=== PATIENT | female | born 1975 | race Caucasian/White ===

== ENCOUNTER 2017-07-07 18:39 | Emergency (ER) | payer MEDICAID ==
[~2017-07-07] VITALS: Ht 172.7 cm; Wt 130.4 kg
[~2017-07-07 18:39] MED LIST: ALBU8.5H8 IH; FERR1TAB9 PO; FLUT16SP2 BOTHNARES; PSEU-250 PO
[2017-07-07 19:46] VITALS: BP_DIAS 97
[2017-07-07] MEDS ORDERED: morphine 4 MG/ML inj SYRINge IV ONE (19:50)
[2017-07-07] MEDS ORDERED: IBUP-1984 PO (21:36)
== END 2017-07-07 21:51 | disposition home or self-care (01) ==
LOC: ER 18:39
DX: S80.02XA Contusion of left knee, initial encounter (principal); M25.562 Pain in left knee; V29.3XXA Motorcycle rider (driver) (passenger) injured in unspecified nontraffic accident, initial encounter; Y93.89 Activity, other specified; Y92.89 Other specified places as the place of occurrence of the external cause
CPT/HCPCS: 29505; 73564; 96374; 99284; A6449; J2270

== ENCOUNTER 2017-07-11 08:45 | Emergency (ER) | payer MEDICAID ==
[~2017-07-11] VITALS: Ht 172.7 cm; Wt 120.0 kg
[~2017-07-11 08:45] MED LIST changes: +IBUP-1984 PO
[2017-07-11 08:48] VITALS: BP 149/99
== END 2017-07-11 10:11 | disposition home or self-care (01) ==
LOC: ER 08:46
DX: S80.02XD Contusion of left knee, subsequent encounter (principal); G89.29 Other chronic pain; Z88.5 Allergy status to narcotic agent; Z79.899 Other long term (current) drug therapy; V29.3XXD Motorcycle rider (driver) (passenger) injured in unspecified nontraffic accident, subsequent encounter
CPT/HCPCS: 99282; A6449

== ENCOUNTER 2017-07-17 09:32 | Outpatient (CLI) | payer MEDICAID ==
[2017-07-17 09:31] VITALS: BP 130/76
== END 2017-07-17 10:35 | disposition home or self-care (01) ==
LOC: ORTHO 09:32
PROVIDERS: ATTEND Nurse Practitioner Family
DX: S89.92XA Unspecified injury of left lower leg, initial encounter (principal); F41.9 Anxiety disorder, unspecified; G89.29 Other chronic pain; Z88.5 Allergy status to narcotic agent; X58.XXXA Exposure to other specified factors, initial encounter; Y93.89 Activity, other specified; Y92.89 Other specified places as the place of occurrence of the external cause; Y99.8 Other external cause status
CPT/HCPCS: 99213

== ENCOUNTER 2017-07-22 14:17 | Emergency (ER) | payer MEDICAID ==
[~2017-07-22] VITALS: Ht 172.7 cm; Wt 132.8 kg
[2017-07-22 15:12] VITALS: BP 152/84
== END 2017-07-22 16:29 | disposition home or self-care (01) ==
LOC: ER 14:18
DX: S80.02XA Contusion of left knee, initial encounter (principal); M25.462 Effusion, left knee; Z79.899 Other long term (current) drug therapy; G89.29 Other chronic pain; V29.9XXA Motorcycle rider (driver) (passenger) injured in unspecified traffic accident, initial encounter; Y93.89 Activity, other specified; Y92.89 Other specified places as the place of occurrence of the external cause; Y99.8 Other external cause status
CPT/HCPCS: 73560; 99284

== ENCOUNTER 2017-07-31 08:39 | Outpatient (CLI) | payer MEDICAID ==
[2017-07-31] MEDS ORDERED: BUPIVAcaine/PF 2.5mg/ml (0.25%) 10ml vial ONE (09:14)
[2017-07-31] MEDS ORDERED: LIDOcaine 2% (20mg/ml) 5ml vial ONE (09:14)
[2017-07-31] MEDS ORDERED: gadopentetate dimeglumine 5 mmol/10ml vial IV ONE (09:15)
[2017-07-31] MEDS ORDERED: sodium bicarbonate 4.2% (0.5mEq/ml) inj. ONE (09:15)
[2017-07-31] MEDS ORDERED: iohexol 300 MG/1 ML 10ml vial ONE (09:15)
== END 2017-07-31 23:59 | disposition home or self-care (01) ==
LOC: RAD 08:39 → EDSTATUS 09:00 → RAD 23:59
PROVIDERS: ATTEND Nurse Practitioner Family
DX: M17.12 Unilateral primary osteoarthritis, left knee (principal); Z87.891 Personal history of nicotine dependence
CPT/HCPCS: 73722; A9579; Q9967; J2001; J3490

== ENCOUNTER 2017-08-08 09:26 | Outpatient (CLI) | payer MEDICAID ==
[~2017-08-08 09:26] MED LIST changes: -IBUP-1984 PO
== END 2017-08-08 10:00 | disposition home or self-care (01) ==
LOC: ORTHO 09:26
PROVIDERS: ATTEND Nurse Practitioner Family
DX: S89.92XD Unspecified injury of left lower leg, subsequent encounter (principal); S80.02XD Contusion of left knee, subsequent encounter; F41.9 Anxiety disorder, unspecified; G89.29 Other chronic pain; Z88.5 Allergy status to narcotic agent; X58.XXXD Exposure to other specified factors, subsequent encounter
CPT/HCPCS: 99213; A6449

== ENCOUNTER 2017-08-30 09:56 | Outpatient (CLI) | payer MEDICAID ==
[2017-08-30 10:38] VITALS: BP 143/81
== END 2017-08-30 11:22 | disposition home or self-care (01) ==
LOC: ORTHO 09:56
PROVIDERS: ATTEND Nurse Practitioner Family
DX: S80.02XD Contusion of left knee, subsequent encounter (principal); S89.92XD Unspecified injury of left lower leg, subsequent encounter; F41.9 Anxiety disorder, unspecified; Z88.8 Allergy status to other drugs, medicaments and biological substances; X58.XXXD Exposure to other specified factors, subsequent encounter
CPT/HCPCS: 99213

== ENCOUNTER 2017-10-09 09:14 | Outpatient (CLI) | payer MEDICAID | END 2017-10-09 10:19 | disposition home or self-care (01) | LOC: ORTHO 09:14 | PROVIDERS: ATTEND Nurse Practitioner Family | DX: S80.02XD Contusion of left knee, subsequent encounter (principal); S89.92XD Unspecified injury of left lower leg, subsequent encounter; G89.29 Other chronic pain; F41.9 Anxiety disorder, unspecified; E66.01 Morbid (severe) obesity due to excess calories; Z88.5 Allergy status to narcotic agent; Z98.84 Bariatric surgery status; X58.XXXD Exposure to other specified factors, subsequent encounter | CPT/HCPCS: 99213; A6449 ==

== ENCOUNTER 2017-11-07 11:48 | Outpatient (CLI) | payer MEDICAID ==
[2017-11-07 11:58] VITALS: BP 129/66
== END 2017-11-07 12:15 | disposition home or self-care (01) ==
LOC: ORTHO 11:48
PROVIDERS: ATTEND Nurse Practitioner Family
DX: S80.02XD Contusion of left knee, subsequent encounter (principal); S89.92XD Unspecified injury of left lower leg, subsequent encounter; G89.29 Other chronic pain; F41.9 Anxiety disorder, unspecified; Z88.5 Allergy status to narcotic agent; Z98.84 Bariatric surgery status; X58.XXXD Exposure to other specified factors, subsequent encounter
CPT/HCPCS: 99213

== ENCOUNTER 2018-03-12 16:04 | Emergency (ER) | payer MEDICAID ==
[~2018-03-12] VITALS: Ht 175.3 cm; Wt 130.0 kg
[2018-03-12 16:05] VITALS: BP 142/87
[2018-03-12] MEDS ORDERED: AZIT250T PO (16:47)
[2018-03-12] MEDS ORDERED: BENZ-16 PO (16:47)
== END 2018-03-12 17:23 | disposition home or self-care (01) ==
LOC: ER 16:05
DX: J06.9 Acute upper respiratory infection, unspecified (principal); G89.29 Other chronic pain; Z88.5 Allergy status to narcotic agent; Z79.899 Other long term (current) drug therapy; Z87.891 Personal history of nicotine dependence
CPT/HCPCS: 87081; 87880; 99283

== ENCOUNTER 2018-08-10 20:44 | Emergency (ER) | payer MEDICAID ==
[~2018-08-10] VITALS: Ht 172.7 cm; Wt 127.3 kg
[~2018-08-10 20:44] MED LIST changes: +AZIT250T PO
[2018-08-10] MEDS ORDERED: normal saline 1000ML IV soln IVB ONE (20:55)
[2018-08-10 21:29] VITALS: BP 128/72
== END 2018-08-10 22:27 | disposition home or self-care (01) ==
LOC: ER 20:45
DX: E86.0 Dehydration (principal); R42 Dizziness and giddiness; R55 Syncope and collapse; G89.29 Other chronic pain; F41.9 Anxiety disorder, unspecified; Z98.84 Bariatric surgery status; Z88.5 Allergy status to narcotic agent; Z79.899 Other long term (current) drug therapy
CPT/HCPCS: 82948; 93005; 96360; 99283; J7030

== ENCOUNTER 2018-09-28 17:02 | Emergency (ER) | payer MEDICAID ==
[~2018-09-28] VITALS: Ht 172.7 cm; Wt 133.0 kg
[2018-09-28] MEDS ORDERED: ALBU8HFA PO (18:23)
[2018-09-28 18:36] VITALS: BP 134/77
== END 2018-09-28 18:30 | disposition home or self-care (01) ==
LOC: ER 17:03
DX: J20.9 Acute bronchitis, unspecified (principal); J32.9 Chronic sinusitis, unspecified; G89.29 Other chronic pain; F41.9 Anxiety disorder, unspecified; Z98.0 Intestinal bypass and anastomosis status; Z88.5 Allergy status to narcotic agent; Z79.2 Long term (current) use of antibiotics; Z79.899 Other long term (current) drug therapy
CPT/HCPCS: 99283

== ENCOUNTER 2019-05-10 09:39 | Emergency (ER) | payer MEDICAID ==
[~2019-05-10] VITALS: Ht 172.7 cm; Wt 132.0 kg
[2019-05-10 09:44] VITALS: BP 157/91
--- NOTE | 2019-05-10 10:59 | NUR ---
PT STATES SHE HAS TO PROP HERSELF UP TO SLEEP BECAUSE SHE STARTS COUGHING, ALSO SINUS PAIN. PT IS A PAYROLL AUDITOR.
--- NOTE | 2019-05-10 12:02 | NUR ---
throat swab collected and taken to lab.
[2019-05-10] MEDS ORDERED: ALBU8.5H8 INH (12:37)
== END 2019-05-10 12:50 | disposition home or self-care (01) ==
LOC: ER 09:40
DX: B34.9 Viral infection, unspecified (principal); R05 Cough; R09.89 Other specified symptoms and signs involving the circulatory and respiratory systems; R51 Headache; R07.89 Other chest pain; R06.02 Shortness of breath; J02.9 Acute pharyngitis, unspecified; G89.29 Other chronic pain; F41.9 Anxiety disorder, unspecified; F17.200 Nicotine dependence, unspecified, uncomplicated; Z98.0 Intestinal bypass and anastomosis status; Z72.89 Other problems related to lifestyle; Z88.5 Allergy status to narcotic agent; Z79.899 Other long term (current) drug therapy
CPT/HCPCS: 87081; 87880; 99283

== ENCOUNTER 2020-04-28 19:43 | Emergency (ER) | payer MEDICAID ==
[~2020-04-28] VITALS: Ht 172.7 cm; Wt 113.6 kg
[~2020-04-28 19:43] MED LIST changes: +ALBU8.5H8 INH
[2020-04-28 19:52] VITALS: BP 144/89
== END 2020-04-28 20:54 | disposition home or self-care (01) ==
LOC: ER 19:45
DX: Z20.822 Contact with and (suspected) exposure to COVID-19 (principal); Z98.890 Other specified postprocedural states; Z72.89 Other problems related to lifestyle; Z88.5 Allergy status to narcotic agent; Z79.2 Long term (current) use of antibiotics; Z79.899 Other long term (current) drug therapy
CPT/HCPCS: 36415; 87635; 99283

== ENCOUNTER 2020-11-06 21:42 | Emergency (ER) | payer MEDICAID ==
[~2020-11-06] VITALS: Ht 172.7 cm; Wt 109.1 kg
[~2020-11-06 21:42] MED LIST changes: +ALBU8.5H17 IH; +ALBU8.5H17 INH; -ALBU8.5H8 IH; -ALBU8.5H8 INH; -PSEU-250 PO; +PSEU-303 PO
--- NOTE | 2020-11-06 22:02 | NUR ---
PT DAUGHTER CALLED AND STATED PT WAS AT GET TOGETHER, HAVING FOOD AND DRINKS, SAT DOWN AND STATES SHE FELT LIKE SHE WAS GOING TO THROW UP, GOT PALE AND STATED SHE COULDNT SEE THEN STARTED SEIZING, WENT UNCONCIOUS, FAINT PULSE PALPABLE BY DAUGHTER WHO IS NUMERICAL CONTROL MACHINE OPERATOR, PT DAUGHTER STATES SHE DID A STERNAL PUNCH THEN THE PT WOKE UP. PT STATES WHEN PT WENT LIMP PT FACE WENT "DROOPY" AND PT STATED HER FINGERS AND TOES WENT NUMB.
--- NOTE | 2020-11-06 22:05 | NUR ---
PT DAUGHTER SARAH GREY - [phone]
[2020-11-06 22:08] LABS: BASOPHILS % (AUTO) 0.6 % (0-1); EOSINOPHILS # (AUTO) 0.2 X10'3 (0-0.9); EOSINOPHILS % (AUTO) 2.6 % (0-6); HEMATOCRIT 37.1 % (35.0-45.0); HEMOGLOBIN 12.5 g/dl (12.0-16.0); LYMPHOCYTES # (AUTO) 1.9 X10'3 (1.1-4.8); LYMPHOCYTES % (AUTO) 32.2 % (21-51); MEAN CORPUSCULAR HEMOGLOBIN 30.5 PG (27.0-31.0); MEAN CORPUSCULAR HGB CONC 33.7 g/dL (33.0-36.5); MEAN CORPUSCULAR VOLUME 90.5 FL (78-98); MEAN PLATELET VOLUME 7.2 FL (7.4-10.4); MONOCYTES # (AUTO) 0.7 X10'3 (0-0.9); MONOCYTES % (AUTO) 11.8 % (2-12); NEUTROPHILS # (AUTO) 3.1 X10'3 (1.8-7.7); NEUTROPHILS % (AUTO) 52.8 % (42-75); PLATELET COUNT 362 X10'3 (140-440); WHITE BLOOD COUNT 5.9 X10'3 (4.5-11.0)
[2020-11-06 22:37] LABS: ALANINE AMINOTRANSFERASE 16 U/L (12-78); ALBUMIN 3.2 G/DL (3.4-5.0); ALBUMIN/GLOBULIN RATIO 0.8 (1.1-1.5); ALKALINE PHOSPHATASE 76 IU/L (46-116); ANION GAP 10 (8-16); ASPARTATE AMINO TRANSFERASE 12 U/L (10-37); BILIRUBIN,TOTAL 0.2 MG/DL (0.1-1.0); BLOOD UREA NITROGEN 9 MG/DL (7-18); BUN/CREATININE RATIO 12.5 (6.6-38.0); CALCIUM 8.1 MG/DL (8.5-10.1); CHLORIDE 108 MMOL/L (99-107); CREATININE 0.72 MG/DL (0.40-0.90); GLUCOSE 89 MG/DL (70-104); POTASSIUM 3.2 MMOL/L (3.5-5.1); SODIUM 143 MMOL/L (135-145); TOTAL CARBON DIOXIDE 25.1 MMOL/L (24-32); TOTAL PROTEIN 7.1 G/DL (6.4-8.2); eGFR 87 ML/MIN
[2020-11-06] MEDS ORDERED: AMOX-117 PO (23:54)
[2020-11-07 00:16] VITALS: BP 124/79
== END 2020-11-07 00:17 | disposition home or self-care (01) ==
LOC: ER 21:43
DX: R55 Syncope and collapse (principal); R11.2 Nausea with vomiting, unspecified; G89.29 Other chronic pain; Z72.89 Other problems related to lifestyle; Z98.84 Bariatric surgery status; Z88.8 Allergy status to other drugs, medicaments and biological substances; Z79.2 Long term (current) use of antibiotics; Z79.899 Other long term (current) drug therapy
CPT/HCPCS: 36415; 71045; 80053; 83880; 84484; 85025; 93005; 99285

== ENCOUNTER 2022-10-28 14:31 | Emergency (ER) | payer MEDICAID ==
[~2022-10-28] VITALS: Ht 172.7 cm; Wt 118.2 kg
[2022-10-28] MEDS ORDERED: normal saline 1000ML IV soln IVB STA (16:08)
[2022-10-28] MEDS ORDERED: epiNEPHrine 1 mg/ml inj SQ ONE (16:10)
[2022-10-28] MEDS ORDERED: diphenhydrAMINE 50 mg/ml inj IV ONE ×2 (16:10→17:35)
[2022-10-28] MEDS ORDERED: methylPREDNISolone sod succ 125mg/2ml vial IV ONE (16:10)
[2022-10-28] MEDS ORDERED: famotidine/PF 10 mg/ml inj IV ONE (16:10)
[2022-10-28 18:10] LABS: BASOPHILS % (AUTO) 0.3 % (0-1); EOSINOPHILS % (AUTO) 0.6 % (0-6); HEMATOCRIT 35.2 % (35.0-45.0); HEMOGLOBIN 11.8 g/dl (12.0-16.0); LYMPHOCYTES # (AUTO) 1.3 X10'3 (1.1-4.8); LYMPHOCYTES % (AUTO) 24.3 % (21-51); MEAN CORPUSCULAR HEMOGLOBIN 29.5 PG (27.0-31.0); MEAN CORPUSCULAR HGB CONC 33.5 g/dL (33.0-36.5); MEAN PLATELET VOLUME 7.7 FL (7.4-10.4); MONOCYTES # (AUTO) 0.3 X10'3 (0-0.9); MONOCYTES % (AUTO) 6.3 % (2-12); NEUTROPHILS # (AUTO) 3.7 X10'3 (1.8-7.7); NEUTROPHILS % (AUTO) 68.5 % (42-75); PLATELET COUNT 243 X10'3 (140-440); WHITE BLOOD COUNT 5.5 X10'3 (4.5-11.0)
[2022-10-28 18:16] LABS: ALANINE AMINOTRANSFERASE 15 U/L (12-78); ALBUMIN 3.4 G/DL (3.4-5.0); ALBUMIN/GLOBULIN RATIO 0.9 (1.1-1.5); ALKALINE PHOSPHATASE 58 IU/L (46-116); ANION GAP 11 (8-16); ASPARTATE AMINO TRANSFERASE 19 U/L (10-37); BILIRUBIN,TOTAL 0.2 MG/DL (0.1-1.0); BLOOD UREA NITROGEN 11 MG/DL (7-18); C-REACTIVE PROTEIN 0.76 MG/DL (0.0-0.5); CALCIUM 8.3 MG/DL (8.5-10.1); CHLORIDE 105 MMOL/L (99-107); CREATININE 0.58 MG/DL (0.40-0.90); GLUCOSE 114 MG/DL (70-104); POTASSIUM 3.2 MMOL/L (3.5-5.1); SODIUM 140 MMOL/L (135-145); eCRCL 120 ML/MIN; eGFR > 90 ML/MIN
[2022-10-28] MEDS ORDERED: dexamethasone 4mg tablet PO ONE (19:45)
[2022-10-28] MEDS ORDERED: DEC4T PO (19:48)
[2022-10-28] MEDS ORDERED: FAMO-128 PO (19:48)
[2022-10-28] MEDS ORDERED: DIPH25CA83 PO (19:48)
[2022-10-28 20:05] VITALS: BP 139/85; PULSE 84; RESP 16; TEMP 99.1; O2SAT 97
== END 2022-10-28 20:11 | disposition home or self-care (01) ==
LOC: ER 14:31
DX: T78.49XA Other allergy, initial encounter (principal); X58.XXXA Exposure to other specified factors, initial encounter
CPT/HCPCS: 36415; 80053; 84145; 85025; 85651; 86140; 96361; 96372; 96374; 96375; 96376; 99285; J0171; J1200; J2930; J3490; J7030